=== PATIENT | male | born 1950 | race Caucasian/White ===

== ENCOUNTER → 2021-05-20 | Day surgery (SDC) | payer MEDICARE ==
[~2021-05-20] VITALS: Ht 185.4 cm; Wt 70.3 kg
[~2021-05-20] MED LIST: CEFUROXIME500 MG PO; FLOMAX0.4 MG PO; IBUPROFEN400 MG PO; NORCO 7.5-3251 EACH PO; VITAMIN B-121000 MCG PO; VITAMIN D325 MC6 PO
== END | disposition home or self-care (01) ==
LOC: OR 06:43
DX: Z12.11 Encounter for screening for malignant neoplasm of colon (principal); D3A.8 Other benign neuroendocrine tumors; K62.1 Rectal polyp; K57.30 Diverticulosis of large intestine without perforation or abscess without bleeding; N20.0 Calculus of kidney; R97.20 Elevated prostate specific antigen [PSA]; E53.8 Deficiency of other specified B group vitamins; E55.9 Vitamin D deficiency, unspecified; Z20.822 Contact with and (suspected) exposure to COVID-19
CPT/HCPCS: J2704; J7120

== ENCOUNTER 2022-06-16 15:58 | Inpatient (IN) | payer MEDICARE, MEDICAID ==
[~2022-06-16] VITALS: Ht 185.4 cm; Wt 68.5 kg
[~2022-06-16 15:58] MED LIST changes: -CIPRO500 MG PO; -QUINAPRIL-HCTZ1 EACH PO
[2022-06-16] MEDS ORDERED: QUINAPRIL-HCTZ1 EACH PO (18:33)
[2022-06-17 03:08] LABS: HEMOGLOBIN 12.9 gm/dl (14.0-17.5); WHITE BLOOD COUNT 19.3 K/UL (4.5-11.0)
[2022-06-17 03:34] LABS: RED BLOOD COUNT 3.95 M/UL (4.20-5.50)
[2022-06-18 03:46] LABS: HEMOGLOBIN 12.2 gm/dl (14.0-17.5); RED BLOOD COUNT 3.74 M/UL (4.20-5.50)
[2022-06-18 04:09] LABS: WHITE BLOOD COUNT 11.8 K/UL (4.5-11.0)
[2022-06-19 02:55] LABS: HEMOGLOBIN 11.8 gm/dl (14.0-17.5); RED BLOOD COUNT 3.62 M/UL (4.20-5.50); WHITE BLOOD COUNT 9.8 K/UL (4.5-11.0)
[2022-06-19 03:11] LABS: BUN/CREATININE RATIO 18 (0-10)
[2022-06-19] MEDS ORDERED: CIPRO500 MG PO (09:24)
== END 2022-06-19 13:08 | disposition home or self-care (01) | DRG 871 ==
LOC: M/S 15:58
PROVIDERS: ADMIT Internal Medicine
DX: A41.9 Sepsis, unspecified organism (principal); G93.41 Metabolic encephalopathy; N17.9 Acute kidney failure, unspecified; N30.00 Acute cystitis without hematuria; E86.0 Dehydration; R65.20 Severe sepsis without septic shock; I10 Essential (primary) hypertension; E87.6 Hypokalemia; R31.9 Hematuria, unspecified; N41.0 Acute prostatitis; Z20.822 Contact with and (suspected) exposure to COVID-19; Z80.1 Family history of malignant neoplasm of trachea, bronchus and lung; Z82.49 Family history of ischemic heart disease and other diseases of the circulatory system; Z79.899 Other long term (current) drug therapy
CPT/HCPCS: 36415; 80048; 83605; 84132; 84153; 85025; J1956; J3480

== ENCOUNTER → 2022-06-16 | Outpatient (CLI) | payer MEDICARE ==
[~2022-06-16] MED LIST changes: +CIPRO500 MG PO; +QUINAPRIL-HCTZ1 EACH PO; -VITAMIN D325 MC6 PO; +VITAMIN D350 MC3 PO
[2022-06-16 11:53] LABS: HEMOGLOBIN 14.7 gm/dl (14.0-17.5); RED BLOOD COUNT 4.46 M/UL (4.20-5.50)
== END ==
LOC: LAB 11:21
PROVIDERS: Nurse Practitioner Family
DX: R50.9 Fever, unspecified (principal); Z20.822 Contact with and (suspected) exposure to COVID-19
CPT/HCPCS: 36415; 71046; 80048; 81001; 85025; 87077; 87086; 87186; U0002